=== PATIENT | female | born 1945 | race Caucasian/White ===

== ENCOUNTER → 2016-07-25 | Outpatient (CLI) | payer OTHER ==
[~2016-07-25] MED LIST: REGADENOSON 0.4 MG/5 ML DISP.SYRIN. IV ONE
--- NOTE | 2016-07-25 12:07 | RAD ---
APPROVED REPORT Test Type: Pharmacological Stress Nurse/Tech: Jewels Aguero R.N. Test Indications: chest pain Cardiac History: Family history Medications: See Electronic Medical Record Medical History: See Electronic Medical Record Resting ECG: SBaltazar matilda Resting Heart Rate: 57 bpm Resting Blood Pressure: 125/65mmHg Pretest Chest Pain: No chest pain Nurse/Tech Notes S1S2, lungs sound clear Consent: The procedure was explained to the patient in lay terms. Informed consent was witnessed. Dirk eout was entered into [employer]. History and Stress Test performed by Jewels Aguero R.N. Pharm. Details Pharmacologic stress testing was performed using 0.4mg per 5ml of regadenoson given intravenously ove r 7-10 seconds. Stress Symptoms Dyspnea POST EXERCISE Reason for Termination: Infusion complete Max HR: 99 bpm Max Blood Pressure: 140/57mmHg Blood Pressure response to exercise: Normal blood pressure response during stress. Chest Pain: No. Arrhythmia: No. ST Change: No. INTERPRETATION Stress EKG Conclusion: The resting EKG shows a sinus rhythm and mild ST segment depression in the inf erior leads. The stress EKG shows slight further depression in the abnormal leads but is not diagnostic of ischemi a. Baseline mildly abnormal EKG with slight further changes with stress that are not diagnostic for isch emia. Imaging Protocol IMAGE PROTOCOL: Rest Tc-99m/stress Tc-99m 1 day Rest: Stress: Viability: Radiopharm.Tc99m TknnmquajOc18i Sestamibi Kcjv86pGa 33mCi Duration 15min. 10min. Img Date 07/25/2016 07/25/2016 Inj-Img [id number]. 60min. Rest Admin Site:IV - Right AntecubitalAdministrator:Paulo Rogers, RT (R)(N) Stress Admin Site: IV - Right AntecubitalAdministrator: Jessica Mendoza RT (R)(N) STRESS DATA End Diast. Vol.43.0mlAv. Heart Rate64.0bpm End Syst. Vol.10.0mlCO Index BSA0.0L/min Myocardial Mass91.0gEject. Hhhbfarn30.0% Stress Rates Pk. Fill Rate3.24EDV/secLVtime Pk. Fill 273.12msec Pk. Empty Rate4.13ESV/secLVtime Pk. Nxtea202.50msec /3 Pk. Fill0.65EDV/sec Stress Scores Regional WT0.00Summed WT0.00 Regional WM0.00Summed WM4.00 LV Perfusion The stress scans showed no significant defects. The rest scans showed no significant defects. Nuclear imaging shows no reversible ischemia or infarct. Wall Motion Left ventricular systolic function is normal with an ejection fraction of greater than 70%. LV Perf. Quant 17 Seg. SSS0.00 17 Seg. SRS0.00 17 Seg. SDS0.00 Stress Defect Extent (% LAD)0.00Rest Defect Extent (% LAD)0.00Rev. Defect Extent (% LAD)0.00 Stress Defect Extent (% LCX) 0.00Rest Defect Extent (% LCX)0.00Rev. Defect Extent (% LCX)0.00 Stress Defect Extent (% RCA)0.00Rest Defect Extent (% RCA)0.00Rev. Defect Extent (% RCA)0.00 Stress Defect Extent (% ZACH)0.00Rest Defect Extent (% ZACH)0.00Rev. Defect Extent (% ZACH)0.00 Conclusion 1. Mildly abnormal baseline EKG with slight EKG changes with exertion that are not diagnostic of isch emia. 2. Nuclear imaging shows no reversible ischemia or infarct. 3. Normal left ventricular systolic function with an ejection fraction of greater than 70%. 4. Low risk Lexiscan nuclear stress test.
--- NOTE | 2016-07-25 13:15 | CARD ---
APPROVED REPORT EXAM: Two-dimensional and M-mode echocardiogram with Doppler and color Doppler. Other Information Quality : GoodHR: 74bpm Rhythm : NSR INDICATION Chest Pain Atypical chest pain Echo Enhancing Agent Indication: Rule Out Septal Defect Agent/Amount Used: Agitated Saline 12mL 2D DIMENSIONS RVDd2.5 (2.9-3.5cm)Left Atrium(2D)3.4 (1.6-4.0cm) IVSd0.8 (0.7-1.1cm)Aortic Root(2D)3.0 (2.0-3.7cm) LVDd4.5 (3.9-5.9cm)LVOT Diameter2.3 (1.8-2.4cm) PWd0.9 (0.7-1.1cm)LVDs2.5 (2.5-4.0cm) FS (%) 44.7 %SV69.6 ml LVEF(%)76.1 (>50%) Aortic Valve AoV Peak Edward.140.6cm/sAoV VTI34.2cm AO Peak GR.7.9mmHgLVOT Peak Edward.119.8cm/s AO Mean GR.5mmHgAVA (VMAX)3.46cm2 Mitral Valve MV E Nofmrlzd61.2cm/sMV E Peak Gr.4mmHg MV DECEL [id number] A Evdijcbr010.1cm/s MV E Mean Gr.1mmHgE/A Ratio0.7 MV A Xarnbksg137ei Pulmonary Valve PV Peak Fkxrfvgs856.4cm/s Tricuspid Valve TR P. Ybnqhmgb876ed/sTR Peak Gr.31mmHg Pulmonary Vein S1 Cewitoxf26.3cm/sD2 Gzqqrcaq82.5cm/s PVa [id number] LEFT VENTRICLE The left ventricle is normal size. There is normal left ventricular wall thickness. The left ventricu lar systolic function is normal. The Ejection Fraction is 65-70%. There is normal LV segmental wall m otion. Transmitral Doppler flow pattern is Grade I-abnormal relaxation pattern. RIGHT VENTRICLE The right ventricle is normal size. There is normal right ventricular wall thickness. The right ventr icular systolic function is normal. ATRIA The left atrium size is normal. The right atrium size is normal. The atrial septum is aneurysmal. Inj ection of bubbles documented no interatrial shunt. AORTIC VALVE The aortic valve is mildly thickened. The aortic valve is trileaflet. Doppler and Color Flow revealed trace aortic regurgitation. There is no significant aortic valvular stenosis. MITRAL VALVE The mitral valve leaflets are mildly thickened. There is no evidence of mitral valve prolapse. There is no mitral valve stenosis. Doppler and Color Flow revealed trace mitral regurgitation. TRICUSPID VALVE Doppler and Color Flow revealed mild tricuspid regurgitation. The pulmonary artery systolic pressure is estimated at 36 mmHg. There is mild pulmonary hypertension. PULMONIC VALVE The pulmonary valve is normal in structure and function. Doppler and Color Flow revealed no pulmonic valvular regurgitation. There is no pulmonic valvular stenosis. GREAT VESSELS The aortic root is normal in size. The ascending aorta is normal in size. The pulmonary artery is nor mal. The IVC is normal in size and collapses >50% with inspiration. PERICARDIAL EFFUSION There is no evidence of significant pericardial effusion. Critical Notification Critical Value: No <Conclusion> The left ventricular systolic function is normal. The Ejection Fraction is 65-70%. There is normal LV segmental wall motion. Transmitral Doppler flow pattern is Grade I-abnormal relaxation pattern. The atrial septum is aneurysmal. Trace aortic regurgitation. Trace mitral regurgitation. Mild tricuspid regurgitation. The pulmonary artery systolic pressure is estimated at 36 mmHg. Injection of bubbles documented no interatrial shunt.
== END | disposition home or self-care (01) ==
LOC: NM 08:07
PROVIDERS: ATTEND Internal Medicine Cardiovascular Disease
DX: R07.89 Other chest pain (principal)
CPT/HCPCS: 78452; 93017; 96374; 96375; 96376; A9500; C8929; J2785

== ENCOUNTER → 2019-07-27 | Outpatient (CLI) | payer MEDICARE, OTHER ==
--- NOTE | 2019-07-27 20:14 | RAD ---
Examination: US GUID NDL PLACE/ASPI/BX, DIGITAL DIAGNOSTIC RT History: Abnormal right breast ultrasound and mammogram Comparison/Correlation: 07/08/2019 right breast ultrasound and bilateral diagnostic mammographic images Findings: Risks and benefits of ultrasound-guided biopsy were discussed with the patient and informed consent was obtained. Cleansing with ChloraPrep was performed. Lateral approach was utilized. Sterile drapes were placed. Sterile probe cover and sterile gel were utilized. 6 cc of 1 percent lidocaine was administered on the expected medial course to the mass and medial to it. Incision was made with a scalpel. Introducer was placed. 4 passes were made with a 12-gauge biopsy needle. Marker was then placed under ultrasound guidance via the introducer. Digital right MLO and right CC images were obtained. Biopsy clip marker is present at the lower outer right breast. And appears to correspond with the site of interest based on the previous mammographic images. No hematoma. Scattered fibroglandular densities noted. Impression: Successful right breast ultrasound-guided biopsy. No immediate competitions. The patient tolerated the procedure well. Electronically signed by: Marc Wallace MD (07/27/2019 8:12 PM) [id number]
--- NOTE | 2019-07-28 17:06 | PATHOLOGY ---
[facility] Accession Number: [id number] . 01 Material submitted: . breast - RIGHT BREAST MASS 7:00 2CMFN .5CM. Modifiers: right, 7:00 . 01 Clinical history: . Right breast mass 7:00 2 cm FN 0.5 cm . 02 Diagnosis: Breast tissue, right breast mass 7:00 needle biopsies: - Focal dense stromal sclerosis and mild duct ectasia. 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 02 Comment: Sections of the right breast mass 7:00 needle biopsy reveal a fairly well demarcated area of dense stromal sclerosis with focal duct ectasia. There is no atypia or evidence of malignancy. Please correlate with radiographic findings. 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 02 Electronically signed: . Oren Norman MD, Pathologist NPI- [id number] . 01 Gross description: . The specimen is received in formalin, labeled "Stephanie Turk, right breast 7:00 2 cm FN" and consists of 4 needle cores of yellow-white to pink tissue measuring between 0.7 cm and 1.7 cm in length and 0.2 cm in diameter. They are entirely submitted in A1-A3. The specimen was collected at 10:16 AM on 07/27/2019 and placed in formalin at 10:20 AM. The cold ischemic time is 5 minutes and the total formalin fixation time is greater than 6 hours but less than 72 hours. (BRAULIO; 07/27/2019) SYU/SYU 07/27/2019 1605 Local . 02 Pathologist provided ICD-10: N60.31, N60.41 . 02 CPT . 483621 Specimen Comment: A courtesy copy of this report has been sent to [phone], [phone] Specimen Comment: [id number], Specimen Comment: Report sent to ,DR RODRIGUEZ / DR ROYAL Performed at: 01 [facility] [address], [place] [id number] MD Perry Branch MD Phone: [phone] Performed at: 02 [facility] [address] [place], [place] [id number] MD Oren Norman MD Phone: [phone]
== END ==
LOC: US 09:19
PROVIDERS: ATTEND Surgery
DX: R92.8 Other abnormal and inconclusive findings on diagnostic imaging of breast (principal); N60.41 Mammary duct ectasia of right breast
CPT/HCPCS: 19083; 77065; 88305; C1713; 19081; 76942

== ENCOUNTER → 2020-08-11 | Outpatient (CLI) | payer MEDICARE ==
[~2020-08-11] MED LIST changes: +CONTRAST GIVEN. MC PRN; +IOHEXOL 240 MG/ML 50ML VIAL. PO ONE; +IOHEXOL 300 MG/ML 100ML VIAL. IV ONE; -REGADENOSON 0.4 MG/5 ML DISP.SYRIN. IV ONE
--- NOTE | 2020-08-11 17:00 | RAD ---
EXAM: CT Chest, Abdomen, and Pelvis without IV contrast INDICATION: Reason: MALIGNANT NEOPLASM OF SIGMOID / Spl. Instructions: 75ML OMNI 300 30 ML OMNI 240 P O-IV INFILTRATED / History: TECHNIQUE: Multi-detector row CT images were acquired from the thoracic inlet through the ischial tu berosities without the use of IV contrast. Sagittal and coronal images were acquired from the transax ial data. All CT scans performed at this facility utilize dose optimization techniques as appropriate to the exam, including the following: Automated exposure control and adjustment of the mA and/or KV according to patient size (this includes techniques or standardized protocols for targeted exams wher e dose is indication/reason for exam). ORAL CONTRAST: Administered COMPARISON: None FINDINGS: The absence of IV contrast limits evaluation of soft tissue pathology. CHEST: CARDIOVASCULAR: Borderline ectasia of the ascending thoracic aorta to 3.9 cm. No intramural hematoma . Normal heart size. Coronary calcifications. MEDIASTINUM & GOPAL: No adenopathy or masses. LUNGS: No pulmonary infiltrate, nodule, or other focal abnormality. PLEURAL SPACE: No pleural effusions or pneumothorax. OSSEOUS & SOFT TISSUE: Unremarkable ABDOMEN/PELVIS: LIVER: Unremarkable BILIARY SYSTEM: The liver shows layering gallstones. No wall thickening or distention. Bile ducts are not dilated. PANCREAS: Unremarkable SPLEEN: Unremarkable ADRENALS: Unremarkable KIDNEYS & URETERS: Bilateral renal cortical scarring and nonobstructing punctate calcified stone in the inferior pole right kidney is noted. No hydronephrosis. BLADDER: Unremarkable REPRODUCTIVE ORGANS: Hysterectomy. Ovaries not seen and may be surgically absent. No adnexal mass. GASTROINTESTINAL: The stomach, small bowel, and colon are unremarkable. There is no mass, wall thicke stefani or pericolonic soft tissue stranding. Enteric contrast administered opacifies up to the proximal transverse colon and moderate stool is present. There are no findings of bowel obstruction or inflam mation. The appendix is normal. MESENTERY/PERITONEUM/RETROPERITONEUM: Unremarkable VASCULAR: Scattered arterial calcifications. LYMPH NODES: No adenopathy OSSEOUS & SOFT TISSUES: Unremarkable IMPRESSION: No evidence of residual mass in the sigmoid colon or of local residual or metastatic disease in the i ncluded field of view. Evaluation limited by lack of IV contrast. Electronically signed by: Rylee Malone MD (08/11/2020 4:57 PM) [id number]
== END ==
LOC: CT 10:17
PROVIDERS: ATTEND Internal Medicine Hematology & Oncology
DX: C18.7 Malignant neoplasm of sigmoid colon (principal); N20.0 Calculus of kidney; Z90.49 Acquired absence of other specified parts of digestive tract
CPT/HCPCS: 71260; 74177; Q9966; Q9967